=== PATIENT | female | born 1970 | race Caucasian/White ===

== ENCOUNTER 2020-01-30 08:07 | Inpatient (IN) | payer MEDICAID, SELFPAY ==
[~2020-01-30] VITALS: Ht 167.6 cm; Wt 65.8 kg
[2020-01-30 08:14] VITALS: BP 114/67
--- NOTE | 2020-01-30 08:25 | NUR ---
BIB self from home with c/o cough, SOB and nasal congestion x 1 week. No exporure to COVID, fever or travel. A, A, Ox4, cooperative NKDA, denies any PMH Resp even and sl labored, RR 16/min, increased effort noted, in NAD Connected to procedure rn, sinus rhythm, VVS O2 sat 95% on room air Awaiting evaluation by MD Will continue to monitor
--- NOTE | 2020-01-30 09:15 | NUR ---
COVID rapid swab and RSV swabs preformed, patient tolerated well
--- NOTE | 2020-01-30 09:20 | NUR ---
IV started left forearm with #20g, blood drawn and sent to lab. 2 sets of blood cultures sent as well
--- NOTE | 2020-01-30 10:05 | NUR ---
Patient placed on O2 @ 2L/min NC per O2 sat 98% on room air
[2020-01-30 10:13] LABS: BASOPHILS % (AUTO) 0.1 % (0.0-2.0); EOSINOPHILS % (AUTO) 0.1 % (0.0-4.0); HEMATOCRIT 36.7 % (36-48); HEMOGLOBIN 12.4 g/dL (12.0-16.0); LYMPHOCYTES % (AUTO) 20.9 % (20.5-51.1); MEAN CORPUSCULAR HEMOGLOBIN 32 pg (27-31); MEAN CORPUSCULAR HGB CONC 34 g/dL (33-37); MEAN CORPUSCULAR VOLUME 95.2 fL (80-94); MONOCYTES # (AUTO) 0.2 K/uL (0.8-1.0); MONOCYTES % (AUTO) 3.3 % (1.7-9.3); NEUTROPHILS # (AUTO) 3.7 K/uL (1.8-7.7); NEUTROPHILS % (AUTO) 75.6 % (42.2-75.2); PLATELET COUNT (AUTO) 179 K/uL (140-450); RED BLOOD CELL COUNT(AUTO) 3.85 MIL/uL (4.20-5.40); RED CELL DISTRIBUTION WIDTH 12.6 % (11.6-13.7); WHITE BLOOD COUNT (AUTO) 4.8 K/uL (4.8-10.8)
[2020-01-30 10:47] LABS: PROTHROMBIN TIME 9.9 secs (10.8-13.4)
[2020-01-30 10:59] LABS: CARBON DIOXIDE 24.3 mmol/L (21-32); CREATININE 0.6 mg/dL (0.6-1.3); POTASSIUM 3.3 mmol/L (3.5-5.1); TOTAL BILIRUBIN 0.4 mg/dL (0.0-1.0)
--- NOTE | 2020-01-30 11:02 | NUR ---
Unable to get flu swabs until now. Right nares swabbed for influenza A &B, sent to lab
[2020-01-30 11:31] LABS: RSV NEGATIVE (NEGATIVE)
[2020-01-30 11:37] LABS: LACTATE DEHYDROGENASE 331 U/L (81-234)
[2020-01-30] MEDS ORDERED: AZITHROMYCIN 500 MG in DEXTROSE 5% 250 ML IV ONE (12:40)
[2020-01-30] MEDS ORDERED: DEXAMETHASONE 10 MG/ML VIAL IVP ONE (12:40)
--- NOTE | 2020-01-30 13:05 | NUR ---
*Lab called with critical results* COVID rapid POSITIVE Dr. Bernal notified
[2020-01-30] MEDS ORDERED: AZITHROMYCIN 500 MG INJ VIAL IV ONE (13:17)
--- NOTE | 2020-01-30 14:16 | NUR ---
*Lab called critical value, COVID-19 antigen POSITIVE* Dr. Bernal notified
--- NOTE | 2020-01-30 14:47 | NUR ---
Patient transfered to room 118 via rney with RN, O2 and monitor to transport Report given to RN for 118 at bedside
[2020-01-30 15:05] VITALS: BP 91/58
--- NOTE | 2020-01-30 15:05 | NUR ---
RECEIVED REPORT FROM ER NURSE HYACINTH PT IS TRANSPORTED VIA GURNEY, AAOX4, ON 2LPM OXYGEN VIA NC, AMBULATORY, CONTINENT, SKIN INTACT, IV SITES INTACT AND PATENT ON LEFT AC RUNNING NS AT 60MLS/HR. PATIENT IS ROOM 98% AND O2 AT 2LP 100 . ORIENTED TO ROOM AND CALL LIGHT, SAFETY MEASURES IN PLACE CALL LIGHT WITHIN REACH. WILL CONTINUE TO MONITOR.
[2020-01-30] MEDS ORDERED: HYDROcodone/APAP 5/325 MG 1 TAB TAB PO PRN (16:05)
[2020-01-30] MEDS ORDERED: LORazepam 2 MG/ML VIAL IM/IVP PRN (16:05)
[2020-01-30] MEDS ORDERED: ACETAMINOPHEN 325 MG TAB PO PRN (16:05)
[2020-01-30] MEDS ORDERED: POTASSIUM CHLORIDE 10 MEQ TABER PO PRN (16:05)
[2020-01-30] MEDS ORDERED: ALBUTEROL HFA MDI 90 MCG/ACTUATION 8 GM INH PRN (16:05)
[2020-01-30] MEDS ORDERED: ZOLPIDEM 5 MG TAB PO PRN (16:05)
[2020-01-30] MEDS ORDERED: ONDANSETRON 4 MG/2 ML VIAL IM/IVP PRN (16:05)
[2020-01-30] MEDS ORDERED: DOCUSATE SODIUM 100 MG GELCAP PO PRN (16:05)
[2020-01-30] MEDS ORDERED: MORPHINE SULFATE 2 MG/ML SYR IVP PRN (16:05)
[2020-01-30] MEDS ORDERED: MAG SULF 2000 MG/WATER PREMIX 50 ML IV PRN (16:05)
--- NOTE | 2020-01-30 16:30 | NUR ---
MEDICATIONS DUE GIVEN AT THIS TIME, POTASSIUM CHLORIDE GIVEN POTASSIUM LEVEL AT 3.3.
[2020-01-30] MEDS: NACL 0.9% 1,000 ML IV SCH (16:45)
[2020-01-30 16:53] LABS: CHOL/HDL RATIO 2.3 (1-4.5); MAGNESIUM 1.9 mg/dL (1.8-2.4); THYROID STIMULATING HORMONE 1.71 uIU/mL (0.34-3.74)
--- NOTE | 2020-01-30 18:00 | NUR ---
MADE ROUNDS AT THIS TIME PATIENT IS AWAKE AND ABLE TO EAT DINNER. DENIES PAIN , NO DISTRESS NOTED, WILL CONTINUE TO MONITOR,
--- NOTE | 2020-01-30 19:15 | NUR ---
ENDORSED TO NIGHT NURSE FOR CONTINUITY OF CARE. PT IS STABLE
--- NOTE | 2020-01-30 19:16 | NUR ---
RECEIVED REPORT FROM DAY SHIFT NURSE. PT RESTING IN BED WITH HOB ELEVATED. PT AAOX4, AMBULATORY, AND ABLE TO MAKE NEEDS KNOWN. RESPIRATIONS EVEN AND UNLABORED TO O2 2LPM/NC. SKIN IS WARM, DRY, INTACT. ABDOMEN IS SOFT AND NON-TENDER. PT WITH IV ACCESS ON LEFT AC G20 PATENT AND INTACT. PT DENIES ANY PAIN OR DISCOMFORT AT THIS TIME. NO REQUESTS MADE. POC DISCUSSED. PT VERBALIZED UNDERSTANDING. PT KEPT COMFORTABLE. SAFETY MEASURES IN PLACE. CALL LIGHT WITHIN REACH. WILL CONTINUE TO MONITOR.
--- NOTE | 2020-01-30 20:30 | NUR ---
RECEIVED REPORT FROM AM SHIFT. PT SEEN AND ASSESSED. PT ON 3L NC WITH SPO2 OF 100%. TITRATED PT TO ROOM AIR WITH SPO2 96%. CLEAR BREATH SOUNDS ON AUSCULTATION. PT IS IN NO APPARENT RESPIRATORY DISTRESS AT THIS TIME. PRN TX NOT INDICATED AT THIS TIME. RN NOTIFIED. WILL CONTINUE TO MONITOR PT
--- NOTE | 2020-01-30 20:31 | NUR ---
RT AT BEDSIDE. RT PLACED PT ON ROOM AIR FROM 2L/NC. CURRENT O2 SAT 98%. PT TOLERATING WELL. WILL CONTINUE TO MONITOR.
[2020-01-30] MEDS: ZINC SULF 220 MG CAP PO SCH (20:48)
[2020-01-30] MEDS: ENOXAPARIN 80 MG/0.8 ML SYR SUBQ SCH (20:49)
--- NOTE | 2020-01-30 20:49 | NUR ---
VS STABLE. SCHEDULED MEDS GIVEN. RESPIRATIONS EVEN AND UNLABORED TO ROOM AIR. CURRENT O2 SAT 98%. PT DENIES ANY PAIN OR DISCOMFORT AT THIS TIME. NO REQUESTS MADE. SAFETY MEASURES IN PLACE. CALL LIGHT WITHIN REACH. WILL CONTINUE TO MONITOR.
--- NOTE | 2020-01-30 22:11 | NUR ---
ROUNDS MADE. PT IN BED WATCHING TV WITH HOB ELEVATED. PT STILL IN ROOM AIR. CURRENT O2 SAT 97%. PT NOT IN DISTRESS. DENIES ANY PAIN OR DISCOMFORT AT THIS TIME. NO REQUESTS MADE. PT KEPT COMFORTABLE. CALL LIGHT WITHIN REACH. WILL CONTINUE TO MONITOR.
[2020-01-30 23:02] VITALS: BP 97/53
[2020-01-31] VITALS: BP 97/56
--- NOTE | 2020-01-31 00:16 | NUR ---
VITAL SIGNS STABLE. PT IN BED RESTING. O2 SAT 96% ON ROOM AIR. PT NOT IN DISTRESS. DENIES ANY PAIN OR DISCOMFORT. NO REQUESTS MADE. SAFETY MEASURES IN PLACE. CALL LIGHT WITHIN REACH. WILL CONTINUE TO MONITOR.
--- NOTE | 2020-01-31 02:33 | NUR ---
ROUNDS MADE. PT SLEEPING ON SIDE LYING POSITION. CURRENT O2 SAT 97% ON ROOM AIR. PT NOT IN DISTRESS. NO S/SX OF PAIN OR DISCOMFORT NOTED. PT KEPT COMFORTABLE. CALL LIGHT WITHIN REACH. WILL CONTINUE TO MONITOR.
[2020-01-31 04:00] VITALS: BP 96/59
--- NOTE | 2020-01-31 04:11 | NUR ---
VS STABLE. RESPIRATIONS EVEN AND UNLABORED TO ROOM AIR. PT NOT IN DISTRESS. DENIES ANY PAIN OR DISCOMFORT AT THIS TIME. NO REQUESTS MADE. PT KEPT COMFORTABLE. SAFETY MEASURES IN PLACE. CALL LIGHT WITHIN REACH. WILL CONTINUE TO MONITOR.
[2020-01-31 05:29] LABS: APPEARANCE,URINE CLEAR (CLEAR); BILIRUBIN,URINE NEGATIVE (NEGATIVE); BLOOD, URINE NEGATIVE (NEGATIVE); COLOR,URINE YELLOW (YELLOW); LEUKOCYTE ESTERASE ,URINE TRACE (NEGATIVE); NITRITE, URINE NEGATIVE (NEGATIVE); PH,URINE 6.5 (5.0-9.0); UGLUCOSE 2+ (NEGATIVE)
[2020-01-31 06:31] LABS: BARBITURATE, URINE NEGATIVE ng/ml (NEG <=200); BENZODIAZEPINE, URINE NEGATIVE ng/mL (NEG <=200); CANNABINOID, URINE NEGATIVE ng/mL (NEG <=50); COCAINE, URINE NEGATIVE ng/mL (NEG <=300); OPIATE, URINE NEGATIVE ng/mL (NEG <=2000); PHENCYCLIDINE SCREEN,URINE NEGATIVE ng/mL (NEG <=25)
[2020-01-31 07:06] LABS: BASOPHILS % (AUTO) 0.5 % (0.0-2.0); HEMATOCRIT 36.2 % (36-48); HEMOGLOBIN 12.1 g/dL (12.0-16.0); LYMPHOCYTES # (AUTO) 0.8 K/uL (2.5-16.5); MEAN CORPUSCULAR HEMOGLOBIN 32 pg (27-31); MEAN CORPUSCULAR HGB CONC 33 g/dL (33-37); MEAN CORPUSCULAR VOLUME 96.1 fL (80-94); MONOCYTES # (AUTO) 0.2 K/uL (0.8-1.0); MONOCYTES % (AUTO) 5.8 % (1.7-9.3); NEUTROPHILS # (AUTO) 2.4 K/uL (1.8-7.7); NEUTROPHILS % (AUTO) 70.7 % (42.2-75.2); PLATELET COUNT (AUTO) 164 K/uL (140-450); RED BLOOD CELL COUNT(AUTO) 3.77 MIL/uL (4.20-5.40); RED CELL DISTRIBUTION WIDTH 12.6 % (11.6-13.7); WHITE BLOOD COUNT (AUTO) 3.4 K/uL (4.8-10.8)
--- NOTE | 2020-01-31 07:18 | NUR ---
ENDORSED TO DAY SHIFT NURSE FOR CONTINUITY OF CARE.
--- NOTE | 2020-01-31 07:19 | NUR ---
RECEIVED ENDORSEMENT FROM LOGISTICS PLANNING ENGINEER AWAKE, ALERT, ORIENTEDX4, BREATHING SPONTANEOUSLY AT ROOM AIR. WITH ONGOING IV FLUID WITH 0.9% NS 60ML/HOUR INFUSING AT LEFT AC G20 IV CANNULA NOTED. ON DROPLET ISOLATION DX COVID POSITIVE. SAFETY MEASURES IN PLACE AND CONTINUE MONITOR.
[2020-01-31 07:29] LABS: ALBUMIN 2.7 g/dL (3.4-5.0); ANION GAP 10.6 (8-16); CARBON DIOXIDE 26.9 mmol/L (21-32); CREATININE 0.6 mg/dL (0.6-1.3); PHOSPHORUS 2.6 mg/dL (2.5-4.9); POTASSIUM 4.5 mmol/L (3.5-5.1); TOTAL BILIRUBIN 0.3 mg/dL (0.0-1.0)
[2020-01-31 08:00] VITALS: BP 104/68
--- NOTE | 2020-01-31 08:37 | NUR ---
PATIENT HAS BEEN SCREENED AND CATEGORIZED MODERATE NUTRITION RISK. PATIENT WILL BE SEEN WITHIN 3-5 DAYS OF ADMISSION. 02/02/20 02/04/[address]
[2020-01-31] MEDS: VITAMIN D 400 IU TAB PO SCH (08:50)
[2020-01-31] MEDS: ZINC SULF 220 MG CAP PO SCH ×2 (08:51→20:47)
[2020-01-31] MEDS: ASCORBIC ACID 500 MG TAB PO SCH (08:51)
[2020-01-31] MEDS: ENOXAPARIN 80 MG/0.8 ML SYR SUBQ SCH ×2 (08:53→20:47)
[2020-01-31] MEDS: NACL 0.9% 1,000 ML IV SCH (08:55)
[2020-01-31] MEDS ORDERED: AZITHROMYCIN 250 MG TAB PO SCH (09:00)
--- NOTE | 2020-01-31 09:02 | NUR ---
FULLY AWAKE AND ALERT, DUE MEDICATION GIVEN
[2020-01-31 09:33] LABS: RBC,URINE 0-5 /HPF (0-5)
[2020-01-31 09:35] LABS: WBC,URINE 0-5 /HPF (0-5)
--- NOTE | 2020-01-31 10:14 | NUR ---
BELL NECK HAMMERER NOTE: Patient's Orientation Unable To Assess Information Provided By JORDYN DOTY - SON Comments SW WAS UNABLE TO MEET PATIENT AT BEDSIDE DUE TO MEDICAL CONDITION. SW COMPLETED ASSESSMENT WITH SON, JORDYN DOTY. Emergency Nurse, Realtionship and Phone Number DEBORAH DOTY SON [phone] [facility] Power of Rattle Leak And Squeak Repairer No Does Patient Have a POLST No Identifying Problems No Social Work Triggers Is A Social Work Consult Needed No Mandate Report Filed No Explanation Of Identifying Problems PATIENT IS A 49-YEAR-OLD FEMALE ADMITTED FOR HYPOXIA, COVID, AND PNEUMONIA. PATIENT HAS NO REPORTED PMHX. Admitted From Home Pre-Admission Level Of Functioning Status Independent/Ambulatory Prior Resources/Services Used In Last 12 Months No Prior Resources Used Prior DME No Prior DME Used Dialysis Comments PATIENT'S SON REPORTED THAT PATIENT DOES NOT RECEIVE DIALYSIS. Living Situation Lives With Friend/Other House Rents A Room Patient Had Caregiver No Home Support No Caregiver Issues Financial Issues No Known Financial Issue Referral To The Financial Counselor Needed No Factors/Needs No D/C Needs Identified Pt/Rep Participated In Discharge Plan Yes Patient/Family Agress With Discharge Plan Yes Discharge Plan Comments TENTATIVE DISCHARGE PLAN IS FOR PATIENT TO RETURN HOME. DC Plan Status Initiated
[2020-01-31 12:00] VITALS: BP 104/55
--- NOTE | 2020-01-31 12:32 | NUR ---
VITAL SIGNS TAKEN AND RECORDED, STABLE.
--- NOTE | 2020-01-31 14:13 | NUR ---
DISCHARGE PLANNING: PER KAVON JAIMES, PATIENT NEEDS TO BE TRANSFERRED TO A CONTRACTED FACILITY. DR. MOORE MADE AWARE. Addendum: 01/31/20 at 1450 by Denise Khoury PER KAVON JAIMES, THEY ARE IN CONTACT WITH [facility]TA[facility] AT [phone], ABLE TO SPEAK TO BONNIE. PER BONNIE, NO BEDS AVAILABLE YET. Addendum: 01/31/20 at 5595 by Denise Khoury PER DR. MOORE, SHE RECEIVED A CALL FROM [facility] SAYING THAT THEY ARE NOT ACCEPTING THE PATIENT. Addendum: 02/01/20 at 1520 by Rebecca Eddy CM DC SENIOR ENERGY ANALYST: FAXED ORDER FOR HOME SAFETY EVAL TO [facility]. PER PATIENT SHE DOES NOT WANT TO GO HOME SINCE SHE IS COVID POSITIVE. PROVIDED PATIENT INFORMATION FOR THE [facility] AND 211 NUMBER TO CALL FOR ASSISTANCE. SPOKE TO PATIENT SHE STATED SHE CALLED AND THEY WILL BE CALLING HER BACK. Addendum: 02/01/20 at 1539 by Keyona Tian CM DC PLANNING: PATIENT HAS SOME CONCERN THAT SHE HAS ROOMMATES AND CAN NOT BE QUARANTINE, EXPLAINED THAT SHE HAS TO CALL 211 AND REGISTERED FOR THE ROOM AVAILABLE . PT VERBALIZED UNDERSTANDING AND WILL CALL 211. KAVON TO FOLLOW Addendum: 02/01/20 at 1607 by Rebecca Eddy CM FLORA JERRY: CALLED [address] [facility] TO SEEK HELP FOR PATIENT WAS TRANSFERRED TO [facility] LINE [phone] THE REP STATED THAT THE [facility] NO LONGER HAS RESOURCES FOR COVID PATIENTS. Addendum: 02/01/20 at 1616 by Rebecca Eddy CM RECEIVED A CALL FROM ESTRADA WITH [facility] [phone] THEY HELP ASSIST COVID POSITIVE PATIENTS QUARANTINE IN TRAILERS. SHE WILL E-MAIL ME THE PAPER WORK FOR PATIENT TO FILL OUT TO SEE IF SHE QUALIFIES. Addendum: 02/02/20 at 0912 by Keyona Tian CM DC PLANNING: PROVIDE THE FORM TO BE FILLED OUT BY THE PATIENT AND TO CONTACT ESTRADA AT [facility] FOR THE [facility] . PT VERBALIZED UNDERSTANDING. CALLED [facility] SPOKE WITH DILIA JACOBSON NOTIFIED HER PT STATED HAS ROOMMATES AND NO PLACE TO QUARANTINE AND AWAITING FOR THE [facility] FOR [facility] TO APPROVE. PER DILIA WILL APPROVE FOR YESTERDAY'S STAY BUT MAKE SURE SHE GETS DISCHARGE TODAY. CM TO FOLLOW Addendum: 02/02/20 at 0914 by Rebecca Eddy CM DC SENIOR ENERGY ANALYST: SPOKE TO PATIENT THIS MORNING SHE STATED THAT SHE IS READY TO GO HOME NOW.
--- NOTE | 2020-01-31 14:41 | NUR ---
FULLY AWAKE AND ALERT, WATCHING TV, NOT IN DISTRESS NOTED.
[2020-01-31 16:00] VITALS: BP 135/64
--- NOTE | 2020-01-31 16:00 | NUR ---
WRONG ENTRY OF O2SAT IN FLOW SHEET, ACCURATE READING OF [id number]% AT ROOM AIR, INSTEAD OF 90%.
[2020-01-31] MEDS ORDERED: remdesivir COMMUNICATION ORDER 1 EA MISC MC PRN (16:05)
[2020-01-31] MEDS ORDERED: REMDESIVIR (EUA) 200 MG in NACL 0.9% 100 ML IV ONE (18:25)
[2020-01-31] MEDS ORDERED: CLINICAL MONITORING MC PRN (18:25)
--- NOTE | 2020-01-31 18:44 | NUR ---
JUSTICE MARTINEZ RECEIVED A CALL FROM [facility] STATED THAT THEY DECLINED THE TRANSFER AND PER DR. DUNN, THEY RECOMMENDED DISCHARGE. PER JUSTICE MARTINEZ, SHE NOTIFIED DR. MOORE. RN ASSIGNED MADE AWARE.
--- NOTE | 2020-01-31 18:45 | NUR ---
REFUSED FOR BLOOD TRANSFUSION FOR 1 UNIT CONVALESCENT PLASMA, EXPLAINED THE INDICATION BUT STILL OPTED TO REFUSED. DR. ACEVEDO MADE AWARE THRU TEXT MESSAGES.
--- NOTE | 2020-01-31 19:22 | NUR ---
RECEIVED PT AAOX4 , NID - RA - O2 SAT WNL . IV SITE INTACT AND PATENT , W/ ON GOING REMDESIVIR TIV - NO DRUG REACTION NOTED AT THIS TIME . SAFETY MEASURES IN PLACE - CALL LIGHT WITHIN REACH . PER AM NURSE PT IS REFUSED FOR CONVALESCENT PLASMA - REFUSAL WAIVER SIGNED . PLAN OF CARE DISCUSSED AND VERBALIZE UNDERSTANDING . ON TELE MONITOR - SR . DENIES ANY PAIN AT THIS TIME . WILL CONT. TO MONITOR.
--- NOTE | 2020-01-31 19:24 | NUR ---
ENDORSED TO ELECTROENCEPHALOGRAPH TECHNOLOGIST IN STABLE CONDITION FOR CONTINUITY OF CARE
--- NOTE | 2020-01-31 19:25 | NUR ---
RECEIVED REPORT FROM AM SHIFT. PT SEEN AND ASSESSED. PT ON ROOM AIR WITH SPO2 97%. CLEAR BREATH SOUNDS ON AUSCULTATION. PT IS IN NO APPARENT RESPIRATORY DISTRESS AT THIS TIME. PRN TX NOT INDICATED AT THIS TIME. RN NOTIFIED. WILL CONTINUE TO MONITOR PT
--- NOTE | 2020-01-31 19:53 | NUR ---
CONFIRMED WITH RN END TIME OF AZTHROMYCIN -- 1426 01/30/20.
[2020-01-31 20:00] VITALS: BP 130/65
--- NOTE | 2020-01-31 22:00 | NUR ---
MADE ROUNDS , NO S/SX OF ACUTE DISTRESS NOTED AT THIS TIME . CALL LIGHT WITHIN REACH .
[2020-02-01] VITALS: BP 120/70
--- NOTE | 2020-02-01 | NUR ---
MADE ROUNDS. NOS/SX OF ACUTE DISTRESS NOTED . CALL LIGHT WITHIN REACH .
--- NOTE | 2020-02-01 02:00 | NUR ---
SLEEPING . O2 SAT WNL .
[2020-02-01 04:00] VITALS: BP 100/60
--- NOTE | 2020-02-01 04:00 | NUR ---
MADE ROUNDS . NO S/SX OF ACUTE DISTRESS NOTED . CALL LIGHT WITHIN REACH .
[2020-02-01] MEDS: NACL 0.9% 1,000 ML IV SCH ×2 (04:05→18:02)
--- NOTE | 2020-02-01 06:00 | NUR ---
RESTING ON BED . NO COMPLAIN MADE . O2 SAT WNL .
[2020-02-01 07:01] LABS: BASOPHILS % (AUTO) 0.2 % (0.0-2.0); HEMATOCRIT 37.7 % (36-48); HEMOGLOBIN 12.6 g/dL (12.0-16.0); LYMPHOCYTES % (AUTO) 11.2 % (20.5-51.1); MEAN CORPUSCULAR HEMOGLOBIN 32 pg (27-31); MEAN CORPUSCULAR HGB CONC 33 g/dL (33-37); MEAN CORPUSCULAR VOLUME 94.8 fL (80-94); MONOCYTES # (AUTO) 0.4 K/uL (0.8-1.0); MONOCYTES % (AUTO) 3.9 % (1.7-9.3); NEUTROPHILS # (AUTO) 7.9 K/uL (1.8-7.7); NEUTROPHILS % (AUTO) 84.7 % (42.2-75.2); PLATELET COUNT (AUTO) 221 K/uL (140-450); RED BLOOD CELL COUNT(AUTO) 3.98 MIL/uL (4.20-5.40); RED CELL DISTRIBUTION WIDTH 12.8 % (11.6-13.7); WHITE BLOOD COUNT (AUTO) 9.3 K/uL (4.8-10.8)
--- NOTE | 2020-02-01 07:15 | NUR ---
ENDORSED TO AM SHIFT - PT- STABLE.
--- NOTE | 2020-02-01 07:16 | NUR ---
Received report form pm nurse. Pt asleep in bed, respirations even & nonlabored in room air, responsive to auditory stimuli. Right AC IV 20G intact with IVF NS @ 60ml/hr. Call light within reach.
[2020-02-01 07:30] LABS: ALBUMIN 2.7 g/dL (3.4-5.0); ANION GAP 11.2 (8-16); CARBON DIOXIDE 27.9 mmol/L (21-32); CREATININE 0.7 mg/dL (0.6-1.3); PHOSPHORUS 3.1 mg/dL (2.5-4.9); POTASSIUM 4.1 mmol/L (3.5-5.1); TOTAL BILIRUBIN 0.3 mg/dL (0.0-1.0)
[2020-02-01 08:00] VITALS: BP 102/65
[2020-02-01] MEDS: VITAMIN D 400 IU TAB PO SCH (09:29)
[2020-02-01] MEDS: ZINC SULF 220 MG CAP PO SCH ×2 (09:29→20:44)
[2020-02-01] MEDS: ASCORBIC ACID 500 MG TAB PO SCH (09:29)
[2020-02-01] MEDS: ENOXAPARIN 80 MG/0.8 ML SYR SUBQ SCH ×2 (09:31→20:46)
[2020-02-01 10:06] LABS: T4 (THYROXINE) 10.3 ug/dL (4.5-12.0)
[2020-02-01 12:00] VITALS: BP 104/68
[2020-02-01] MEDS ORDERED: AMOX-1000 PO (13:47)
[2020-02-01] MEDS ORDERED: ZINC220T4 PO (13:47)
[2020-02-01] MEDS ORDERED: ASCO500T95 PO (13:47)
[2020-02-01] MEDS ORDERED: METH4TAB1 PO (13:47)
[2020-02-01] MEDS ORDERED: VITA400T14 PO (13:47)
[2020-02-01] MEDS ORDERED: LACT10CA PO (13:47)
--- NOTE | 2020-02-01 14:00 | NUR ---
Resources provided to patient by Keyona Diane for [facility]. Instructed patient to call for bed availability and room rates. Patient verbalized understanding.
[2020-02-01 16:00] VITALS: BP 101/61
[2020-02-01] MEDS ORDERED: REMDESIVIR (EUA) 100 MG in NACL 0.9% 100 ML IV SCH (18:25)
--- NOTE | 2020-02-01 18:30 | NUR ---
Spoke to Dr Denis re: Remdesivir order. Per physician, continue to give remdesivir as ordered.
--- NOTE | 2020-02-01 19:30 | NUR ---
Left hand 22G IV started. Endorsed to pm nurse to administer remdesivir.
--- NOTE | 2020-02-01 19:30 | NUR ---
RECEIVED REPORT FROM AM RN FOR CONTINUITY OF CARE. PT IS STABLE IN NO DISTRESS. WILL BE ADMINISTERING MEDICATION WILL CONTINUE WITH POC.
[2020-02-01 20:00] VITALS: BP 106/70
--- NOTE | 2020-02-01 20:45 | NUR ---
PT IS AWAKE ALERT ORIENTED X 4 DISPLAYS FLAT AFFECT MINIMAL RESPONSE BUT COOPERATIVE. DENIES ANY DISTRESS. LUNG SOUNDS DIMINISHED. ABD IS ROUND,, SOFT AND NONTENDER, DENIES CONSTIPATION. RECEIVING IV FLUIDS ON LEFT HAND THAT IS INTACT AND PATENT. SKIN IS INTACT. ALL NEEDS MET. WILL CONTINUE WITH POC. V/S: 98.0, 69, 20, 106/70, 96 % RA. PAIN 0/10.
--- NOTE | 2020-02-01 22:53 | NUR ---
PT RESTING IN BED IN NO DISTRESS. RESPIRATION EVEN AND UNLABORED. CALL LIGHT WITHIN REACH CONTINUES TO RECEIVE IVF WITH NO PROBLEM.
[2020-02-02] VITALS: BP 98/59
--- NOTE | 2020-02-02 00:25 | NUR ---
PT IS LAYING RIGHT LATERAL SIDE, RESPIRATION EVEN AND UNLABORED, IN NO DISTRESS, CALL LIGHT WITHIN REACH.
--- NOTE | 2020-02-02 02:53 | NUR ---
CONTINUES TO RECEIVE IVF WITH NO PROBLEMS, SLEEPING WELL. IN NO DISTRESS.
--- NOTE | 2020-02-02 04:30 | NUR ---
LAYING LEFT LATERAL SIDE WITH EYES CLOSED, RESPIRATION EVEN AND UNLABORED. IN NO DISTRESS.
[2020-02-02 05:53] LABS: BASOPHILS % (AUTO) 0.1 % (0.0-2.0); HEMOGLOBIN 11.3 g/dL (12.0-16.0); LYMPHOCYTES # (AUTO) 1.2 K/uL (2.5-16.5); LYMPHOCYTES % (AUTO) 19.1 % (20.5-51.1); MEAN CORPUSCULAR HEMOGLOBIN 32 pg (27-31); MEAN CORPUSCULAR HGB CONC 34 g/dL (33-37); MEAN CORPUSCULAR VOLUME 93.6 fL (80-94); MONOCYTES # (AUTO) 0.4 K/uL (0.8-1.0); MONOCYTES % (AUTO) 5.6 % (1.7-9.3); NEUTROPHILS # (AUTO) 4.7 K/uL (1.8-7.7); NEUTROPHILS % (AUTO) 75.2 % (42.2-75.2); PLATELET COUNT (AUTO) 209 K/uL (140-450); RED BLOOD CELL COUNT(AUTO) 3.53 MIL/uL (4.20-5.40); RED CELL DISTRIBUTION WIDTH 12.4 % (11.6-13.7); WHITE BLOOD COUNT (AUTO) 6.3 K/uL (4.8-10.8)
--- NOTE | 2020-02-02 06:22 | NUR ---
ASLEEP ALL NEEDS MET. CALL LIGHT WITHIN REACH.
[2020-02-02 06:51] LABS: ALBUMIN 2.3 g/dL (3.4-5.0); ANION GAP 9.3 (8-16); CARBON DIOXIDE 27.2 mmol/L (21-32); CREATININE 0.6 mg/dL (0.6-1.3); MAGNESIUM 1.9 mg/dL (1.8-2.4); POTASSIUM 3.5 mmol/L (3.5-5.1); TOTAL BILIRUBIN 0.3 mg/dL (0.0-1.0)
--- NOTE | 2020-02-02 07:25 | NUR ---
REPORT GIVEN TO AM RN FOR CONTINUITY OF CARE. PT IS STABLE
--- NOTE | 2020-02-02 07:27 | NUR ---
RECEIVED REPORT FROM NIGHT NURSE PATIENT IS AAOX4 ON ROOM AIR, AMBULATORY AND REGULAR DIET, SKIN INTACT, IV SITES INTACT AND PATENT ON LEFT HAND RUNNING AN NS AT 60M LS/HR. SAFETY MEASURES IN PLACE, CALL LIGHT WITHIN REACH. WILL CONTINUE TO MONITOR.
[2020-02-02] MEDS: VITAMIN D 400 IU TAB PO SCH (08:59)
[2020-02-02] MEDS: ASCORBIC ACID 500 MG TAB PO SCH (08:59)
[2020-02-02] MEDS: ZINC SULF 220 MG CAP PO SCH (09:00)
--- NOTE | 2020-02-02 09:00 | NUR ---
MEDICATIONS DUE GIVEN AT THIS TIME. NO DISTRESS NOTED AND DENIES PAIN PT IS ABLE TO GO HOME.
[2020-02-02] MEDS: ENOXAPARIN 80 MG/0.8 ML SYR SUBQ SCH (09:02)
--- NOTE | 2020-02-02 10:00 | NUR ---
PATIENT REFUSED INFLUENZA VACCINE AT THIS TIME. EDUCATED ON THE IMPORTANCE OF FLU VACCINE. SAFETY MEASURES IN PLACE AND CALL LIGHT WITHIN REACH.
[2020-02-02] MEDS ORDERED: FLU VACCINE QS2020-21 0.5 ML SYR IMVAC PRN (10:10)
--- NOTE | 2020-02-02 10:20 | NUR ---
DISCHARGED INSTRUCTIONS GIVEN TO PATIENT AT BEDSIDE, ENCOURAGED PATIENT TO FOLLOWUP WITH PCP 3-5 AFTER DISCHARGED AND TO SEEK MEDICAL HELP INCASE OF MEDICAL EMERGENCIES. ENCOURAGE TO TAKE MEDICATIONS PRESCRIBE, SIDE EFFECTS AND DOSAGE. ANSWERED PATIENT QUESTIONS AND PT VERBALIZES UNDERSTANDING. REMOVE ID AND IV SITES INTACT AND COMPLETE. NO BLEEDING ON THE IV SITES. CHANGED PATIENT TO HER OWN CLOTHES AND RETURNED PATIENTS BELONGINGS. ESCORTED PATIENT TO FRONT LOBBY VIA WHEELCHAIR, PT IS DISCHARGED HOME. PT IS STABLE.
== END 2020-02-02 10:20 | disposition home or self-care (01) | DRG 137 ==
LOC: MED 08:07 → MTU 13:47
PROC: XW033E5 Introduction of Remdesivir Anti-infective into Peripheral Vein, Percutaneous Approach, New Technology Group 5 (ICD-10-PCS; principal; 2020-01-31)
DX: U07.1 COVID-19 (principal); J12.89 Other viral pneumonia; J96.01 Acute respiratory failure with hypoxia; E87.6 Hypokalemia; F15.10 Other stimulant abuse, uncomplicated; E43 Unspecified severe protein-calorie malnutrition; E83.51 Hypocalcemia; Z68.23 Body mass index [BMI] 23.0-23.9, adult
CPT/HCPCS: 36415; 36600; 71045; 80053; 80305; 81001; 82150; 82550; 82728; 82803; 83036; 83605; 83615; 83690; 83735; 83880; 84100; 84134; 84436; 84443; 84484; 85025; 85379; 85384; 85610; 85651; 85730; 86140; 86886; 86900; 86901; 87040; 87081; 87086; 87420; 87804; 93005; 99291; J0456; J0696; J1100; J1650; J7030; J7060; Q0092; U0003-CS